=== PATIENT | male | born 1955 | race Caucasian/White ===

== ENCOUNTER → 2018-10-20 | Outpatient (REF) ==
[2018-10-20 13:57] LABS: HEMATOCRIT 26.8 % (42.0-52.0); HEMOGLOBIN 9.3 g/dl (13.5-18.0); MEAN CELL VOLUME 96 fl (80.0-100.0); MEAN CORPUSCULAR HEMOGLOBIN 33 pg (27.0-31.0); MEAN CORPUSCULAR HGB CONC 35 g/dl (33.0-37.0); MEAN PLATELET VOLUME 8.7 fl (7.4-10.4); PLATELET COUNT 643 K/mm3 (130-400); REDCELL DISTRIBUTION WIDTH-CV 13.9 % (11.5-14.5)
[2018-10-20 14:10] LABS: BAND 3 % (0-10); LYMPHOCYTE 8 % (20.0-51.0); NEUTROPHILS 88 % (42.0-75.2); PLATELET ESTIMATE INCREASED (NORMAL)
== END ==
LOC: ZLAB.WCH 13:44
PROVIDERS: Nurse Practitioner Primary Care
DX: Z01.89 Encounter for other specified special examinations (principal)

== ENCOUNTER → 2018-10-20 | Outpatient (CLI) | payer MEDICARE | LOC: COL.VAS 15:28 | DX: M25.461 Effusion, right knee (principal); Z98.1 Arthrodesis status ==

== ENCOUNTER 2022-03-28 15:42 | Inpatient (IN) | payer MEDICARE ==
[~2022-03-28] VITALS: Ht 193 cm; Wt 99.9 kg
[2022-03-28] MEDS ORDERED: ZYLOPRIM 300MG300 MG PO (17:59)
[2022-03-28] MEDS ORDERED: ZYLOPRIM 100MG100 MG PO (18:33)
[2022-03-28] MEDS ORDERED: ALDACTONE 25MG25 M1 PO (18:33)
[2022-03-28] MEDS ORDERED: CARDURA4 MG (18:34)
[2022-03-28] MEDS ORDERED: ZOCOR 20MG20 MG PO (18:34)
[2022-03-28] MEDS ORDERED: COZAAR 50MG50 MG/TAB PO (18:34)
[2022-03-28] MEDS ORDERED: K-DUR20 MEQ PO (18:34)
[2022-03-28] MEDS ORDERED: CARDURA 1MG1 MG (18:35)
[2022-03-28 21:52] VITALS: BP 148/75; PULSE 74; TEMP 97.9
[2022-03-28 23:49] VITALS: BP 142/74; PULSE 65; TEMP 98.3
[2022-03-29 03:01] VITALS: BP 153/69; PULSE 70; TEMP 98.1
--- NOTE | 2022-03-29 06:23 | NUR ---
No c/o pain this shift, slept well, CIWA 1-2, no intervention required. IVF infusing per piv @150cc/hr, NPO
[2022-03-29 06:29] LABS: BASO % 0.3 % (0.0-2.0); EOS # 0.2 K/mm3 (0.0-0.7); EOS % 3.2 % (0.0-4.0); GRAN % 82.1 % (42.2-75.2); HEMOGLOBIN 10.3 g/dl (13.5-18.0); LYMPH # 0.5 K/mm3 (1.2-3.4); LYMPH % 6.5 % (20.0-51.0); MEAN CELL VOLUME 98 fl (80.0-100.0); MEAN CORPUSCULAR HEMOGLOBIN 32 pg (27-31); MEAN CORPUSCULAR HGB CONC 33 g/dl (33.0-37.0); MEAN PLATELET VOLUME 8.8 fl (7.4-10.4); MONO # 0.6 K/mm3 (0.1-0.6); MONO % 7.6 % (1.7-9.3); PLATELET COUNT 246 K/mm3 (130-400); RED BLOOD COUNT 3.22 M/mm3 (4.20-5.60); REDCELL DISTRIBUTION WIDTH-CV 14.4 % (11.5-14.5)
[2022-03-29 06:33] LABS: HEMATOCRIT 31.6 % (42.0-52.0)
[2022-03-29 06:48] LABS: ALBUMIN 3.2 gm/dL (3.4-4.8); BILIRUBIN,TOTAL 0.5 mg/dL (0.2-1.2); CALCIUM 8.5 mg/dL (8.4-10.2); CREATININE, serum 0.76 mg/dL (0.72-1.25); POTASSIUM 4.2 mmol/L (3.5-4.5); TOTAL PROTEIN 6.2 gm/dL (6.2-8.1)
[2022-03-29 07:28] VITALS: BP 152/77; PULSE 66; TEMP 98.5
--- NOTE | 2022-03-29 08:00 | NUR ---
PATIENT IS A&O. VSS. DENIES PAIN OR N/V. PATIENT UP MOVING AROUND IN ROOM WITH OT GETTING DENTURES IN. NPO. CALLED PHARMACY FOR IV THIAMINE ORDERED THIS AM. IV FLUIDS INFUSING VIA PUMP INTO RIGHT ARM IV. RIGHT FORARM IV TO INT. HEAD TO TOE ASSESSMENT COMPLETE. DNR STATUS. SCORING LOW ON DETOX PROTOCOL. PATIENT HAS HX OF DRINKING APPROX 4-6 BEERS/DAY. RESTING UP IN BED WATCHING TV. CALL LIGHT IN REACH. NO OTHER NEEDS AT THIS TIME.
--- NOTE | 2022-03-29 09:55 | NUR ---
workers compensation claims supervisor met with patient to complete intake and discuss discharge plan. Patient lives at home with his Radha ([phone]). He is mostly independent with his ADL's but does report that he has trouble bending over to get dressed so he utilizes a grabber to assist. Patient does not utilize any DME such as a cane or walker to assist with ambulation. Patient has no home oxygen needs. PCP is Dr. Deshpande and he utilizes [facility] for medications with no cost difficulty. Patient reports to having a [employer] established listing his as his agent. Patient is planning on returning home once medically ready. Discharge plan: Home
[2022-03-29 10:17] LABS: CHOLESTEROL RISK RATIO 3.5
[2022-03-29 11:39] VITALS: BP 148/70; PULSE 70; TEMP 97.8
--- NOTE | 2022-03-29 13:35 | NUR ---
Deirdre: Islam Situation: simulation analyst went to room on rounds Background: PT was resting and content Assessment: PT appreciated the visit Recommendation: Echo Technologist will follow up as needed
--- NOTE | 2022-03-29 14:04 | NUR ---
PATIENT SLEEPING AT THIS TIME NO S/S OF PAIN NOTED AT THIS TIME. CONTINUING WITH CLEAR LIQUID DIET REMAINS ON CIWA PRECAUTIONS STABLE. CALL LIGHT WITHIN REACH WILL CONTINUE TO MONITOR FOR ANY CHANGES.
[2022-03-29 15:40] VITALS: BP 159/69; PULSE 83; TEMP 98.5
--- NOTE | 2022-03-29 16:47 | NUR ---
PATIENT WAS C/O CONSTIPATION HAD LARGE BOWEL MOVEMENT FEELING MUCH BETTER AND READY TO DISCHARGE HOME PER PATIENT. WILL CONTINUE TO MONITOR PATIENT CONTINUING TO TOLERATE DIET.
[2022-03-29 19:41] VITALS: BP 157/98; PULSE 80; TEMP 98
[2022-03-29 23:43] VITALS: BP 137/86; PULSE 65; TEMP 98.5
[2022-03-30 03:22] VITALS: BP 133/75; PULSE 70; TEMP 98.3
[2022-03-30 06:49] LABS: BASO # 0.1 K/mm3 (0.0-0.2); BASO % 0.7 % (0.0-2.0); EOS # 0.6 K/mm3 (0.0-0.7); EOS % 8.6 % (0.0-4.0); GRAN # 4.5 K/mm3 (1.4-6.5); GRAN % 64.2 % (42.2-75.2); HEMOGLOBIN 10.1 g/dl (13.5-18.0); LYMPH % 13.7 % (20.0-51.0); MEAN CELL VOLUME 98 fl (80.0-100.0); MEAN CORPUSCULAR HEMOGLOBIN 32 pg (27-31); MEAN CORPUSCULAR HGB CONC 33 g/dl (33.0-37.0); MEAN PLATELET VOLUME 8.9 fl (7.4-10.4); MONO # 0.9 K/mm3 (0.1-0.6); MONO % 12.4 % (1.7-9.3); PLATELET COUNT 237 K/mm3 (130-400); RED BLOOD COUNT 3.15 M/mm3 (4.20-5.60); REDCELL DISTRIBUTION WIDTH-CV 14.6 % (11.5-14.5)
[2022-03-30 06:50] LABS: HEMATOCRIT 30.8 % (42.0-52.0)
[2022-03-30 07:23] VITALS: BP 147/79; PULSE 64; TEMP 99
[2022-03-30 08:27] LABS: ALBUMIN 3.1 gm/dL (3.4-4.8); BILIRUBIN,TOTAL 0.7 mg/dL (0.2-1.2); CALCIUM 8.6 mg/dL (8.4-10.2); CREATININE, serum 0.71 mg/dL (0.72-1.25); TOTAL PROTEIN 6.2 gm/dL (6.2-8.1)
--- NOTE | 2022-03-30 09:50 | NUR ---
PT INDEPENDENT IN ROOM. DR KAUR IN TO SEE PT AND WILL DISCHARGE AFTER PT EATS A BLAND MEAL AND TOLERATES. REVIEWED PLAN WITH PT AND HE VERBALIZED UNDERSTANDING.
[2022-03-30 11:30] VITALS: BP 142/82; PULSE 75; TEMP 98.1
[2022-03-30] MEDS ORDERED: ZOFRAN ODT4 MG PO (14:32)
[2022-03-30] MEDS ORDERED: ULTRAM 50MG TAB50 MG PO (14:32)
--- NOTE | 2022-03-30 17:09 | NUR ---
DISCHARGE INSTRUCTIONS REVIEWED WITH PT AND . QUESTIONS SOLICITED AND ANSWERED. PT LEFT AMBULATORY WITH AND STAFF.
== END 2022-03-30 16:15 | disposition home or self-care (01) | DRG 439 ==
LOC: MEDICAL 15:42 → SURG 17:33 → MEDICAL 18:19 → SURG 03-30 16:15
PROVIDERS: ADMIT Family Medicine
DX: K85.20 Alcohol induced acute pancreatitis without necrosis or infection (principal); E87.1 Hypo-osmolality and hyponatremia; I10 Essential (primary) hypertension; E78.5 Hyperlipidemia, unspecified; M10.9 Gout, unspecified; F10.10 Alcohol abuse, uncomplicated; D64.9 Anemia, unspecified; N40.0 Benign prostatic hyperplasia without lower urinary tract symptoms; Z88.0 Allergy status to penicillin; Z23 Encounter for immunization
CPT/HCPCS: 99222-AI; 99233-AI; 99239; J1650; J3411; J3475; J7030

== ENCOUNTER → 2022-04-22 | Outpatient (CLI) | payer MEDICARE ==
[~2022-04-22] MED LIST: ALDACTONE 25MG25 M1 PO; CARDURA 1MG1 MG; CARDURA4 MG; COZAAR 50MG50 MG/TAB PO; K-DUR20 MEQ PO; ULTRAM 50MG TAB50 MG PO; ZOCOR 20MG20 MG PO; ZOFRAN ODT4 MG PO; ZYLOPRIM 100MG100 MG PO; ZYLOPRIM 300MG300 MG PO
== END ==
LOC: COL.RAD 08:58
DX: G31.9 Degenerative disease of nervous system, unspecified (principal)
CPT/HCPCS: A9575